=== PATIENT | male | born 1970 | race Caucasian/White ===

== ENCOUNTER 2017-03-03 11:39 | Observation (INO) | payer OTHER ==
[~2017-03-03] VITALS: Ht 175.3 cm; Wt 88.7 kg
--- NOTE | ~2017-03-03 | ER ---
[facility]GE[facility] 46 Y [address] ROOM: [place] [address] [place] [facility] [place] DATE: 03/03/2017 ER/Outpatient Report DISCHARGE DATE: FAMILY PHYSICIAN: Jb Rosales PA-C ATTENDING PHYSICIAN: Daniele Arredondo Time of Arrival: 1139 hours. Time of Evaluation/Seen: 1145 hours. IDENTIFICATION: A 46-year-old male. CHIEF COMPLAINT: Right index injury. HISTORY OF PRESENT ILLNESS: The patient is a 46-year-old male from [place] who was sent here for evaluation by Jb Rosales PA-C. The patient reportedly had a high-pressure injury to his right index finger yesterday at 0430 hours. 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 He did get small metallic fragments on that finger and hand. He went to work today. He has had increase in pain since yesterday to the point where he has significant pain now. He was evaluated in [place] and referred here for Orthopedic consultation. The patient has had nausea, vomiting en route secondary to the pain. Last meal was yesterday. He did have Gatorade to drink on the way here but then subsequently vomited. PAST MEDICAL HISTORY: ALLERGIES: NO KNOWN DRUG ALLERGIES. CURRENT MEDICATIONS: 1. Cymbalta. 2. Lisinopril. 3. Xanax. MEDICAL PROBLEMS: 1. Hypertension. 2. Depression. 3. Anxiety. 4. Neuropathy. PAST SURGICAL HISTORY: [facility] AGE: 46 Y [address] ROOM: [place] [id number] [place] [facility] [place] DATE: 03/03/2017 ER/Outpatient Report DISCHARGE DATE: FAMILY PHYSICIAN: Jb Rosales PA-C ATTENDING PHYSICIAN: Daniele Arredondo Prior surgeries: Right 5th finger and left elbow surgery. SOCIAL HISTORY: The patient lives in [place]. He is . Tobacco use, 1 pack per day. Alcohol use, 3 to 4 beers per day. Drug use, denies. REVIEW OF SYSTEMS: All systems reviewed and negative other than what is noted in the HPI. FAMILY HISTORY: No pertinent family history identified. PHYSICAL EXAMINATION: VITAL SIGNS: Weight 88.7 kg. Blood pressure 153/81, pulse 103, respiratory rate is 18, temperature 97.4, and sats 98%. GENERAL: A 46-year-old male in obvious distress. He is shaking secondary to the pain. HEENT: Head; normocephalic and atraumatic. Eyes; pupils equal and reactive to light and accommodation. Extraocular movements intact. Nose; mucosa pink. No lesions. Mouth; no lesions. Pharynx, benign. NECK: Supple. No lymphadenopathy. LUNGS: Clear to auscultation. HEART: Regular rate and rhythm. ABDOMEN: Soft, nondistended, nontender. SKIN: [place], warm, and dry. EXTREMITIES: The patient has a significant abrasion over the dorsum of his right index finger. He has some speckled lesions on his finger and dorsum of his hand from metallic fragments. He has full range of motion, but pain with flexion and extension. He has swelling of that digit over the MCP joint as well as the proximal phalanx. Sensation is intact to light touch. LABORATORY DATA AND X-RAYS: X-ray of his right hand and index finger revealed postoperative changes of the right 5th digit with surgical hardware. No fracture or dislocation of the index finger. They are very small metallic fragments of foreign body in the soft tissues around his index finger. EMERGENCY DEPARTMENT COURSE: A saline lock was initiated. The patient was given fentanyl for pain. Tetanus has been boosted, and he was given Zofran for nausea. IMPRESSION: Soft-tissue injury from air compressor, right index finger. Dr. Arredondo, orthopedic surgeon was consulted and evaluated the patient in the emergency room. Plan for admission for antibiotics, observation, and pain control. PATIENT'S NAME: MONTSERRAT TAVARES [facility] AGE: 46 Y [address] ROOM: [address] [address] [place] [facility] [place] DATE: 03/03/2017 ER/Outpatient Report DISCHARGE DATE: FAMILY PHYSICIAN: Jb Rosales PA-C ATTENDING PHYSICIAN: Daniele Arredondo MD YOLANDE CHILD/boaz /[id number] d: 03/03/176 t: 03/04/17 1244, OUTPATIENT REPORT
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
--- NOTE | ~2017-03-03 | DS ---
PATIENT'S NAME: MONTSERRAT TAVARES [facility] AGE: 46 Y [address] ROOM: [address] [place], [place] [address] [place] [facility] [place]: 03/03/2017 Discharge Summary DISCHARGE DATE: 03/04/2017 FAMILY PHYSICIAN: Jb Rosales PA-C ATTENDING PHYSICIAN: Daniele Donahue HOSPITAL COURSE: Mr. Tavares was admitted through the Emergency Room. He had a burn on the dorsum of his hand at the base of the index finger from draining an air compressor. There are probably some very small metal fragments. There was some mild inflammation, but the compartments were all soft. He had full motion with no pain at the PIP or DIP, and no tenderness over the flexor tendons. He was admitted for observation. The hand was wrapped in Kerlix, soaked in normal saline, and kept warm with a K-pad. It was elevated at all times. He was started on Keflex. The following morning, the dressing was removed. There was absolutely no erythema. There was some tenderness to light touch about the hand. There was no evidence of any induration. There was no fluctuance. He had full motion of the PIP and DIP without discomfort and negative Tinel's at the carpal tunnel, and no tenderness of the flexor tendons. DISCHARGE DIET: Discharged to home on a regular diet. ACTIVITY: Off work for now. DISCHARGE INSTRUCTIONS: The was there, I explained to her how to do soaks. We will take 2 quarts of lukewarm tap water and add 2 teaspoons of table salt. While doing the soak for 15 minutes three times a day, we will work on range of motion. We will continue the Keflex 500 mg four times a day for a week to complete the treatment of the cellulitis. We will see him back in the office on Monday afternoon at 4 p.m. If the symptoms have all resolved, we will plan for return to work. He does have a past history of a dystrophic-type pain after a fracture of the right hand small finger. 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 Certainly, he is at risk to develop a dystrophy, and this work- related accident has made that more significant. DISCHARGE MEDICATIONS: He will continue on his Cymbalta and lisinopril. His family physician gives him Xanax. DANIELE DONAHUE MD DPM/boaz PATIENT'S NAME: MONTSERRAT TAVARES [facility] AGE: 46 Y [address] ROOM: [place] [address] [place] [facility] [place]: 03/03/2017 Discharge Summary DISCHARGE DATE: 03/04/2017 FAMILY PHYSICIAN: Jb Rosales PA-C ATTENDING PHYSICIAN: Daniele Donahue /[id number] d: 03/04/17 1347 t: 03/05/17 1004, DISCHARGE SUMMARY
[2017-03-03] MEDS ORDERED: PRINIVIL (ZESTR20 MG PO (15:27)
[2017-03-03] MEDS ORDERED: CYMBALTA60 MG PO (15:27)
[2017-03-03] MEDS ORDERED: XANAX0.25 MG PO (15:28)
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
--- NOTE | 2017-03-03 17:47 | NUR ---
AAOx3. Cooperative with cares. Up independently, but has IV poles x2, one for IVF, one for R)arm "suspension". R)hand has debris and redness. Kerlix x4 pkgs on hand, saturated w/NS, wrapped in Kpad, put in tubigrip, hanging from IV pole. NPO @IN. Gave Dilaudid and [place] x1 w/relief.
[2017-03-04 04:54] LABS: BASOPHIL % 0.5 %; EOSINOPHIL # 0.3 K/uL (0.0-0.5); EOSINOPHIL % 3.6 %; HEMATOCRIT 41.4 % (37.0-53.0); HEMOGLOBIN 13.9 g/dL (12.0-17.0); IMMATURE GRANULOCYTE # 0.1 K/uL (0.0-0.3); IMMATURE GRANULOCYTE % 1.5 %; LYMPHOCYTE # 2.1 K/uL (0.8-4.0); LYMPHOCYTE % 25.8 %; MCH 32.4 pg (27.0-34.0); MCHC 33.6 gm/dL (32.0-36.5); MCV 96.5 fl (83.0-98.0); MONOCYTE # 0.9 K/uL (0.0-1.0); MONOCYTE % 10.9 %; MPV 9.6 fl (9.4-12.4); NEUTROPHIL # (ANC) 4.7 K/uL (1.4-9.0); NEUTROPHIL % 57.7 %; NRBC % 0 /100WBC (0-0.00); PLATELET COUNT 215 K/uL (150-450); RBC 4.29 M/uL (4.00-6.00); RDW-CV 12.2 % (11.9-14.6); WBC 8.1 K/uL (4.0-11.0)
--- NOTE | 2017-03-04 05:37 | NUR ---
Significant Event: PATIENT IS ALERT AND ORIENTATED. AMBULATES WITH STAND BY ASSIST GB. VSS WNL AFEBRILE. RT HAND WRAPPED WITH GAUZE AND K-PAD WITH FINGERS FREE FOR RUCHI CHECKS. KEEP GAUZE SATURATED WITH NORMAL SALINE. KEEP HAND ELEVATED. IV TO L HAND WITH FLUID RUNNING. NORCO GIVEN FOR PAIN X3 LAST DOSE AT 0238 DILADID GIVEN FOR PAIN LAST DOSE AT 0238. NPO AFTER MIDNIGH FOR POSSIBLE DEBRIDEMENT IN AM. Follow up:
[2017-03-04] MEDS ORDERED: NORCO 5-325 TA1 EACH PO (13:32)
[2017-03-04] MEDS ORDERED: KEFLEX500 MG PO (13:55)
--- NOTE | 2017-03-04 16:55 | NUR ---
Patient is alert and oriented x3. VSS and on RA. present for the discharge teaching. Information given on new medications, wound care, dvt and general discharge information. Patient and verbalized understanding and had no furthur questions at that time. Refused information on tobacco cessation. Patient pulled out own IV. Walked patient to the front entrance for discharge. Cooperative with dischrage and no complications.
== END 2017-03-04 14:26 | disposition disaster alternative care site (69) ==
LOC: GACC 11:39 → GMSU 13:57
PROVIDERS: ADMIT Orthopaedic Surgery
DX: T23.021A Burn of unspecified degree of single right finger (nail) except thumb, initial encounter (principal); L03.011 Cellulitis of right finger; T31.0 Burns involving less than 10% of body surface; I10 Essential (primary) hypertension; E78.00 Pure hypercholesterolemia, unspecified; F32.9 Major depressive disorder, single episode, unspecified; F41.9 Anxiety disorder, unspecified; G89.29 Other chronic pain; F17.210 Nicotine dependence, cigarettes, uncomplicated; Z79.899 Other long term (current) drug therapy; Z98.890 Other specified postprocedural states; X17.XXXA Contact with hot engines, machinery and tools, initial encounter; Y93.89 Activity, other specified
CPT/HCPCS: G0378; J0690; J1170; J2001; J2405; J3010; J7120

== ENCOUNTER 2017-04-07 16:04 | Emergency (ER) | payer OTHER ==
--- NOTE | ~2017-04-07 | ER ---
PATIENT'S NAME: MONTSERRAT TAVARES [facility] AGE: 46 Y [address] ROOM: [place] [address] LOCATION: [facility] ADMIT DATE: 04/07/2017 ER/Outpatient Report DISCHARGE DATE: 04/07/2017 FAMILY PHYSICIAN: Jb Rosales PA-C ATTENDING PHYSICIAN: Gen Perkins CHIEF COMPLAINT: Pinky injury. HISTORY OF PRESENT ILLNESS: Mr. Tavares presents for evaluation of right pinky injury. This happened an hour and a half before arrival. He was at work. He was using a wrench, it slipped and struck his pinky on the ground. He had a recent surgery of a fracture at that site. He does drink daily. He does smoke. Dr. Knutson performed plate fixation with screws in October. His injury happened at work today. There is some swelling there. The finger is otherwise doing okay. PAST MEDICAL HISTORY: Documented on the record and reviewed by me. SOCIAL HISTORY: Documented on the record and reviewed by me. MEDICATIONS: Documented on the record and reviewed by me. ALLERGIES: DOCUMENTED ON THE RECORD AND REVIEWED BY ME. REVIEW OF SYSTEMS: All systems were reviewed and negative except as noted in the HPI. PHYSICAL EXAMINATION: VITAL SIGNS: Blood pressure 138/85, pulse 114, respiratory rate 16, temperature 97.6, SpO2 is 97% on room air. Pain is rated 10/10. GENERAL: Age-appropriate male, upright on the exam table in obvious emotional distress, anxious appearance, wincing in pain. No respiratory distress. NEURO: No obvious abnormalities. No true sensory deficits appreciated. He does report some tingling in the pinky finger, but sensation is intact to light touch. CHEST: Even unlabored respirations. Heart is tachycardic. ABDOMEN: Benign. EXTREMITIES: Warm, well formed, well perfused. The right pinky finger is notable for surgical site scar dorsally. There is an abrasion with no exposed bone tendon or subcutaneous tissues over the PIP joint. The patient is notable for flexion of the PIP. Extension and flexion are limited by pain. PATIENT'S NAME: MONTSERRAT TAVARES [facility] AGE: 46 Y [address] ROOM: [place], [place] [address] LOCATION: [facility] ADMIT DATE: 04/07/2017 ER/Outpatient Report DISCHARGE DATE: 04/07/2017 FAMILY PHYSICIAN: Jb Rosales PA-C ATTENDING PHYSICIAN: Gen Perkins The patient was never able to fully extend the finger. The finger has brisk capillary refill. LABORATORY DATA AND X-RAYS: Plain films of the hand were obtained. No acute fractures. Hardware appeared stable. IMPRESSION: Contusion with scrape to the right pinky finger. EMERGENCY DEPARTMENT COURSE: The patient was seen and evaluated. He was given Zofran and [place] with no improvement. He was given Ativan and 1 mg of IM Dilaudid with some improvement. I discussed the case with Dr. Knutson, the patient's surgeon who was kind enough to take my phone call and this patient has a history of having difficult pain control. As there is no current indication for further evaluation, we will have him follow up with Dr. Knutson later next week if pain is not controlled. All questions were answered and the patient was discharged. MD PIERCE HOGAN/boaz /[id number] d: t: 04/07/17 2334, OUTPATIENT REPORT
[~2017-04-07 16:04] MED LIST: CYMBALTA60 MG PO; KEFLEX500 MG PO; NORCO 5-325 TA1 EACH PO; PRINIVIL (ZESTR20 MG PO; XANAX0.25 MG PO
== END 2017-04-07 18:21 | disposition disaster alternative care site (69) ==
LOC: GACC 16:04
DX: S60.051A Contusion of right little finger without damage to nail, initial encounter (principal); I10 Essential (primary) hypertension; F41.9 Anxiety disorder, unspecified; Z98.890 Other specified postprocedural states; Z79.899 Other long term (current) drug therapy; W26.8XXA Contact with other sharp object(s), not elsewhere classified, initial encounter
CPT/HCPCS: J1170